=== PATIENT | female | born 1935 | race Two or more races ===

== ENCOUNTER 2021-10-28 18:55 | Emergency (ER) | payer MEDICARE, OTHER ==
[~2021-10-28] VITALS: Ht 152.4 cm; Wt 60.8 kg
[2021-10-28] MEDS ORDERED: KETOROLAC TROMETH 30 MG/ML 1ML VIAL IV ONE (19:30)
[2021-10-29] MEDS ORDERED: IBU600T PO ×2 (02:50→12:15)
[2021-10-29] MEDS ORDERED: KETOROLAC TROMETH 60MG/2ML VIAL IM ONE (03:45)
[2021-10-29 03:52] VITALS: BP 144/64
== END 2021-10-29 03:54 | disposition home or self-care (01) ==
LOC: EDBD 18:55 → ER 19:03
DX: S73.101A Unspecified sprain of right hip, initial encounter (principal); I10 Essential (primary) hypertension; W01.0XXA Fall on same level from slipping, tripping and stumbling without subsequent striking against object, initial encounter; Y93.89 Activity, other specified; Y92.89 Other specified places as the place of occurrence of the external cause; Y99.8 Other external cause status
CPT/HCPCS: 72170; 73552; 96372; 99284; J1885

== ENCOUNTER 2022-09-20 11:40 | Inpatient (IN) | payer MEDICARE, OTHER ==
[~2022-09-20] VITALS: Ht 157.5 cm; Wt 60.9 kg
[~2022-09-20 11:40] MED LIST: IBU600T PO
[2022-09-20] MEDS ORDERED: SODIUM CHLORIDE 0.9% 500 ML IVB ONE (12:00)
[2022-09-20 12:51] LABS: Basophils # (auto) 0 10 ^3/uL (0-0.2); Basophils % (auto) 0.4 % (0.0-2.0); Eosinophils # (auto) 0 10 ^3/uL (0-0.8); Eosinophils % (auto) 0.2 % (0.0-7.0); Hematocrit 34.9 % (36.0-46.0); Hemoglobin 11.8 g/dL (12.2-16.2); Lymphocytes # (auto) 1.3 10 ^3/uL (0.4-5.4); Mean Corpuscular Hemoglobin 32.9 pg (28.0-32.0); Mean Corpuscular Hgb Conc. 33.9 g/dL (32.0-36.0); Monocytes # (auto) 0.7 10 ^3/uL (0-1.3); Monocytes % (auto) 7.9 % (0.0-12.0); Neutrophils # (auto) 6.6 10 ^3/uL (1.6-8.6); Neutrophils % (auto) 76.5 % (37.0-80.0); Red Cell Distribution Width 19.4 % (11.8-14.3); White Blood Cell 8.6 10^3/uL (4.4-10.8)
[2022-09-20 13:05] LABS: Albumin 3.5 g/dL (3.4-5.0); Anion Gap 8 (5-15); Blood Urea Nitrogen 28 mg/dL (7-18); Carbon Dioxide 26 mmol/L (21-32); Chloride 100 mmol/L (98-107); Glucose 97 mg/dL (74-106); INR 1.13 (0.9-1.15); Magnesium 1.8 mg/dL (1.6-2.6); Partial Thromboplastin Time 28.8 sec (24.6-33.4); Potassium 3.2 mmol/L (3.5-5.1); Sodium 134 mmol/L (136-145)
[2022-09-20 13:10] LABS: Alanine Aminotransferase 16 U/L (13-56); Alkaline Phosphatase 101 U/L (45-117); Aspartate Aminotransferase 23 U/L (15-37); BUN/Creatinine Ratio 20.1; Bilirubin, Total 1.5 mg/dL (0.2-1.0); Blood Alcohol < 3.0 mg/dL (0-5); Calcium 8.7 mg/dL (8.5-10.1); GFR African American 46 mL/min; GFR Non-African American 38 mL/min; Total Protein 7.1 g/dL (6.4-8.2)
[2022-09-20] MEDS ORDERED: ONDANSETRON HCL 4 MG/2 ML VIAL IV PRN (18:30)
[2022-09-20] MEDS ORDERED: HYDROcodone-ACET 5/325MG TAB PO PRN (18:30)
[2022-09-20] MEDS ORDERED: ACETAMINOPHEN 325 MG TAB PO PRN (18:30)
[2022-09-20] MEDS ORDERED: DOCUSATE SOD 100 MG CAP PO PRN (18:30)
[2022-09-20] MEDS ORDERED: IOHEXOL 350 MG/ML 100ML IJ ONE (18:39)
[2022-09-20] MEDS ORDERED: POTASSIUM EFFERVESENT TAB 25 MEQ PO ONE (18:45)
[2022-09-20 20:28] LABS: Bilirubin, Direct 0.5 mg/dL (0-0.2)
[2022-09-20 20:32] LABS: Bilirubin, Total 1.5 mg/dL (0.2-1.0)
[2022-09-20] MEDS: AMIODARONE HCL 200 MG TAB PO SCH (22:00)
[2022-09-20] MEDS: SODIUM CHLOR 0.9% PF (SALINE LOCK) 10ML VIAL/SYR IV SCH (22:09)
[2022-09-21 00:01] VITALS: BP 108/43
[2022-09-21] MEDS ORDERED: AMLO-489 PO (00:32)
[2022-09-21] MEDS ORDERED: AMIO200T33 PO (00:32)
[2022-09-21 05:00] VITALS: BP 110/57
[2022-09-21] MEDS: SODIUM CHLOR 0.9% PF (SALINE LOCK) 10ML VIAL/SYR IV SCH ×3 (05:25→20:35)
[2022-09-21 09:18] VITALS: BP 107/47
[2022-09-21] MEDS: AMIODARONE HCL 200 MG TAB PO SCH ×2 (10:25→20:30)
[2022-09-21 13:08] VITALS: BP 104/50
[2022-09-21] MEDS ORDERED: cefTRIAXone 1GM/50ML D5W 50 ML IV ONE (15:00)
[2022-09-21 16:36] VITALS: BP 114/45
[2022-09-21 17:31] LABS: Urine Bacteria NONE SEEN /hpf (None Seen); Urine Blood 1+ /uL (Negative); Urine Specific Gravity 1.035 (1.001-1.035); Urine WBC 1 /hpf (0 - 5)
[2022-09-21 22:00] VITALS: BP 103/41
[2022-09-22] MEDS: SODIUM CHLOR 0.9% PF (SALINE LOCK) 10ML VIAL/SYR IV SCH ×3 (06:00→22:23)
[2022-09-22 06:07] VITALS: BP 109/43
[2022-09-22 07:06] LABS: RPR Non Reactive (Non Reactive)
[2022-09-22 08:53] VITALS: BP 106/50
[2022-09-22] MEDS: cefTRIAXone 1GM/50ML D5W 50 ML IV SCH (09:50)
[2022-09-22] MEDS: AMIODARONE HCL 200 MG TAB PO SCH ×2 (09:50→22:20)
[2022-09-22 10:48] LABS: Basophils # (auto) 0 10 ^3/uL (0-0.2); Eosinophils # (auto) 0 10 ^3/uL (0-0.8); Monocytes # (auto) 0.8 10 ^3/uL (0-1.3); Neutrophils # (auto) 6.2 10 ^3/uL (1.6-8.6)
[2022-09-22 10:50] LABS: Basophils % (auto) 0.2 % (0.0-2.0); Eosinophils % (auto) 0.2 % (0.0-7.0); Hematocrit 25.9 % (36.0-46.0); Hemoglobin 9.4 g/dL (12.2-16.2); Lymphocytes % (auto) 12.2 % (10.0-50.0); Mean Corpuscular Hemoglobin 34.1 pg (28.0-32.0); Mean Corpuscular Hgb Conc. 36.1 g/dL (32.0-36.0); Mean Corpuscular Volume 94.6 fL (80.0-100.0); Monocytes % (auto) 9.9 % (0.0-12.0); Neutrophils % (auto) 77.5 % (37.0-80.0); Red Blood Cells 2.74 10^6/uL (4.0-5.20); Red Cell Distribution Width 19.6 % (11.8-14.3)
[2022-09-22 10:58] LABS: BUN/Creatinine Ratio 20.6; Calcium 8.4 mg/dL (8.5-10.1); Potassium 3.9 mmol/L (3.5-5.1)
[2022-09-22 13:00] VITALS: BP 102/42
[2022-09-22 15:22] LABS: Hemoglobin 9.3 g/dL (12.2-16.2)
[2022-09-22 17:00] VITALS: BP 102/46
[2022-09-22 21:36] LABS: Hemoglobin 9.7 g/dL (12.2-16.2)
[2022-09-22 21:38] LABS: Hematocrit 27.4 % (36.0-46.0)
[2022-09-22 22:00] VITALS: BP 114/49
[2022-09-22] MEDS: DOXYCYCLINE 100 MG TAB/CAP PO SCH (22:20)
[2022-09-22] MEDS: PANTOPRAZOLE 40 MG TAB PO SCH (22:20)
[2022-09-22] MEDS: CLINDAMYCIN 600MG IV 50 ML IV SCH (22:21)
[2022-09-23 01:32] LABS: INR 1.18 (0.9-1.15); Partial Thromboplastin Time 29.8 sec (24.6-33.4)
[2022-09-23 05:00] VITALS: BP 107/42
[2022-09-23] MEDS: CLINDAMYCIN 600MG IV 50 ML IV SCH (05:24)
[2022-09-23] MEDS: SODIUM CHLOR 0.9% PF (SALINE LOCK) 10ML VIAL/SYR IV SCH ×3 (05:25→21:49)
[2022-09-23 07:32] LABS: Basophils # (auto) 0 10 ^3/uL (0-0.2); Basophils % (auto) 0.2 % (0.0-2.0); Eosinophils # (auto) 0 10 ^3/uL (0-0.8); Eosinophils % (auto) 0.4 % (0.0-7.0); Hematocrit 26.2 % (36.0-46.0); Hemoglobin 9.1 g/dL (12.2-16.2); Lymphocytes # (auto) 0.8 10 ^3/uL (0.4-5.4); Lymphocytes % (auto) 10.9 % (10.0-50.0); Mean Corpuscular Hemoglobin 33.3 pg (28.0-32.0); Mean Corpuscular Hgb Conc. 34.9 g/dL (32.0-36.0); Mean Corpuscular Volume 95.6 fL (80.0-100.0); Monocytes # (auto) 0.8 10 ^3/uL (0-1.3); Monocytes % (auto) 11.1 % (0.0-12.0); Neutrophils # (auto) 5.7 10 ^3/uL (1.6-8.6); Neutrophils % (auto) 77.4 % (37.0-80.0); Red Blood Cells 2.74 10^6/uL (4.0-5.20); Red Cell Distribution Width 19.1 % (11.8-14.3); White Blood Cell 7.4 10^3/uL (4.4-10.8)
[2022-09-23 07:37] LABS: Albumin 2.5 g/dL (3.4-5.0); BUN/Creatinine Ratio 17.9; Calcium 8.2 mg/dL (8.5-10.1); Total Protein 5.7 g/dL (6.4-8.2)
[2022-09-23 08:30] VITALS: BP 108/44
[2022-09-23] MEDS: cefTRIAXone 1GM/50ML D5W 50 ML IV SCH (08:58)
[2022-09-23] MEDS: ZINC SULFATE 220mg CAP or TAB PO SCH (09:03)
[2022-09-23] MEDS: AMIODARONE HCL 200 MG TAB PO SCH ×2 (09:04→22:00)
[2022-09-23] MEDS: DOXYCYCLINE 100 MG TAB/CAP PO SCH ×2 (09:04→21:48)
[2022-09-23] MEDS: PANTOPRAZOLE 40 MG TAB PO SCH ×2 (09:04→21:48)
[2022-09-23] MEDS: CHOLECALCIFEROL (VITD3) 2,000 UNIT CAP/TAB PO SCH (09:04)
[2022-09-23] MEDS ORDERED: ASCORBIC ACID 1,000 MG TAB PO SCH (10:00)
[2022-09-23 13:00] VITALS: BP 124/45
[2022-09-23 16:38] VITALS: BP 104/54
[2022-09-23] MEDS: Ensure HIGH Protein Chocolate 8oz Bottle PO SCH (17:58)
[2022-09-23 20:00] VITALS: BP 113/49
[2022-09-23 22:00] VITALS: BP 113/47
[2022-09-24 05:00] VITALS: BP 113/54
[2022-09-24] MEDS: SODIUM CHLOR 0.9% PF (SALINE LOCK) 10ML VIAL/SYR IV SCH ×3 (05:24→22:06)
[2022-09-24] MEDS: Ensure HIGH Protein Chocolate 8oz Bottle PO SCH ×3 (08:00→18:00)
[2022-09-24 09:00] VITALS: BP 111/43
[2022-09-24] MEDS: DOXYCYCLINE 100 MG TAB/CAP PO SCH ×2 (10:31→22:04)
[2022-09-24] MEDS: ZINC SULFATE 220mg CAP or TAB PO SCH (10:31)
[2022-09-24] MEDS: CHOLECALCIFEROL (VITD3) 2,000 UNIT CAP/TAB PO SCH (10:32)
[2022-09-24] MEDS: PANTOPRAZOLE 40 MG TAB PO SCH ×2 (10:32→22:04)
[2022-09-24] MEDS: AMIODARONE HCL 200 MG TAB PO SCH ×2 (10:32→22:04)
[2022-09-24 12:30] VITALS: BP 123/49
[2022-09-24] MEDS ORDERED: IOHEXOL 350 MG/ML 100ML IJ ONE (16:36)
[2022-09-24] MEDS ORDERED: LIDOCAINE 2%HCL (LOCAL ANESTH.) INJ 20ML MDV ONE (16:36)
[2022-09-24] MEDS ORDERED: MIDAZOLAM HCL 2MG/2ML 2ml VIAL (1mg/ml) ONE (16:38)
[2022-09-24] MEDS ORDERED: fentaNYL CITRATE 100 MCG/2 ML VL ONE (16:38)
[2022-09-24 17:00] VITALS: BP 108/46
[2022-09-24 20:00] VITALS: BP 124/54
[2022-09-24 22:00] VITALS: BP 124/54
[2022-09-24 22:31] LABS: Folate (Folic Acid) 14.48 ng/mL (5.38-24); Free T4 (Free Thyroxine) 1.04 ng/dL (0.89-1.76)
[2022-09-25 05:00] VITALS: BP 113/48
[2022-09-25] MEDS: SODIUM CHLOR 0.9% PF (SALINE LOCK) 10ML VIAL/SYR IV SCH ×2 (06:33→21:34)
[2022-09-25] MEDS: Ensure HIGH Protein Chocolate 8oz Bottle PO SCH ×2 (08:00→12:05)
[2022-09-25 08:01] LABS: Basophils # (auto) 0 10 ^3/uL (0-0.2); Basophils % (auto) 0.3 % (0.0-2.0); Eosinophils # (auto) 0 10 ^3/uL (0-0.8); Eosinophils % (auto) 0.3 % (0.0-7.0); Hematocrit 26.8 % (36.0-46.0); Hemoglobin 9.4 g/dL (12.2-16.2); Lymphocytes # (auto) 0.6 10 ^3/uL (0.4-5.4); Lymphocytes % (auto) 7.4 % (10.0-50.0); Mean Corpuscular Hemoglobin 33.8 pg (28.0-32.0); Mean Corpuscular Hgb Conc. 35.1 g/dL (32.0-36.0); Mean Corpuscular Volume 96.4 fL (80.0-100.0); Monocytes # (auto) 0.8 10 ^3/uL (0-1.3); Monocytes % (auto) 9.6 % (0.0-12.0); Neutrophils # (auto) 6.8 10 ^3/uL (1.6-8.6); Neutrophils % (auto) 82.4 % (37.0-80.0); Nucleated Red Blood Cells % 0.1 %; Red Blood Cells 2.78 10^6/uL (4.0-5.20); Red Cell Distribution Width 18.9 % (11.8-14.3); White Blood Cell 8.3 10^3/uL (4.4-10.8)
[2022-09-25 08:11] LABS: Potassium 4.2 mmol/L (3.5-5.1)
[2022-09-25 08:12] LABS: % Iron Saturation 16.9 % (15-50)
[2022-09-25 08:17] LABS: BUN/Creatinine Ratio 21.6; Calcium 8.3 mg/dL (8.5-10.1)
[2022-09-25] MEDS: AMIODARONE HCL 200 MG TAB PO SCH ×2 (08:59→21:32)
[2022-09-25] MEDS: PANTOPRAZOLE 40 MG TAB PO SCH ×2 (08:59→21:31)
[2022-09-25] MEDS: ZINC SULFATE 220mg CAP or TAB PO SCH (08:59)
[2022-09-25 09:00] VITALS: BP 116/51
[2022-09-25] MEDS: CHOLECALCIFEROL (VITD3) 2,000 UNIT CAP/TAB PO SCH (09:00)
[2022-09-25] MEDS: DOXYCYCLINE 100 MG TAB/CAP PO SCH ×2 (09:00→21:31)
[2022-09-25] MEDS ORDERED: FUROSEMIDE 20 MG/2 ML VIAL IV ONE (11:30)
[2022-09-25 12:44] VITALS: BP 119/52
[2022-09-25 17:00] VITALS: BP 120/45
[2022-09-25] MEDS ORDERED: FERROUS SULFATE 325mg EC TAB PO ONE (18:15)
[2022-09-26 05:00] VITALS: BP 102/50
[2022-09-26] MEDS: SODIUM CHLOR 0.9% PF (SALINE LOCK) 10ML VIAL/SYR IV SCH ×2 (06:23→15:29)
[2022-09-26 07:38] LABS: Basophils # (auto) 0 10 ^3/uL (0-0.2); Basophils % (auto) 0.2 % (0.0-2.0); Eosinophils # (auto) 0 10 ^3/uL (0-0.8); Nucleated Red Blood Cells % 0.1 %
[2022-09-26 07:40] LABS: Eosinophils % (auto) 0.5 % (0.0-7.0); Lymphocytes % (auto) 11.8 % (10.0-50.0); Mean Corpuscular Hemoglobin 34.6 pg (28.0-32.0); Mean Corpuscular Volume 96.1 fL (80.0-100.0); Monocytes % (auto) 11.6 % (0.0-12.0); Neutrophils # (auto) 6.5 10 ^3/uL (1.6-8.6); Neutrophils % (auto) 75.9 % (37.0-80.0); Red Cell Distribution Width 18.5 % (11.8-14.3); White Blood Cell 8.6 10^3/uL (4.4-10.8)
[2022-09-26 07:41] LABS: Calcium 8.3 mg/dL (8.5-10.1); Potassium 4.1 mmol/L (3.5-5.1)
[2022-09-26 07:44] LABS: BUN/Creatinine Ratio 18.5
[2022-09-26 08:30] VITALS: BP 116/50
[2022-09-26] MEDS: ZINC SULFATE 220mg CAP or TAB PO SCH (09:34)
[2022-09-26] MEDS: DOXYCYCLINE 100 MG TAB/CAP PO SCH (09:34)
[2022-09-26] MEDS: PANTOPRAZOLE 40 MG TAB PO SCH (09:34)
[2022-09-26] MEDS: CHOLECALCIFEROL (VITD3) 2,000 UNIT CAP/TAB PO SCH (09:34)
[2022-09-26] MEDS: AMIODARONE HCL 200 MG TAB PO SCH (09:34)
[2022-09-26] MEDS: FERROUS SULFATE 325mg EC TAB PO SCH ×2 (09:44→18:00)
[2022-09-26] MEDS: Ensure HIGH Protein Chocolate 8oz Bottle PO SCH ×4 (09:44→18:00)
[2022-09-26] MEDS ORDERED: FUROSEMIDE 20 MG/2 ML VIAL IV SCH (10:00)
[2022-09-26] MEDS ORDERED: PANT40TA2 PO (12:34)
[2022-09-26] MEDS ORDERED: DOX100T PO (12:34)
[2022-09-26] MEDS ORDERED: FER325T PO (12:34)
[2022-09-26 15:07] VITALS: BP 120/57
[2022-09-26 16:30] VITALS: BP 119/55
== END 2022-09-26 19:38 | disposition home health service (06) | DRG 299 ==
LOC: ER 11:40 → TELE 18:24 → TELE-WESTW 23:26
PROVIDERS: ADMIT Internal Medicine; ATTEND Internal Medicine
PROC: 06H03DZ Insertion of Intraluminal Device into Inferior Vena Cava, Percutaneous Approach (ICD-10-PCS; principal; 2022-09-24)
DX: I82.4Z2 Acute embolism and thrombosis of unspecified deep veins of left distal lower extremity (principal); G92.8 Other toxic encephalopathy; I50.41 Acute combined systolic (congestive) and diastolic (congestive) heart failure; U07.1 COVID-19; N39.0 Urinary tract infection, site not specified; N28.0 Ischemia and infarction of kidney; I13.0 Hypertensive heart and chronic kidney disease with heart failure and stage 1 through stage 4 chronic kidney disease, or unspecified chronic kidney disease; Z20.822 Contact with and (suspected) exposure to COVID-19; D64.9 Anemia, unspecified; D69.6 Thrombocytopenia, unspecified; E78.5 Hyperlipidemia, unspecified; E87.6 Hypokalemia; I48.0 Paroxysmal atrial fibrillation; N18.32 Chronic kidney disease, stage 3b; F17.210 Nicotine dependence, cigarettes, uncomplicated; S70.11XA Contusion of right thigh, initial encounter; W18.39XA Other fall on same level, initial encounter; Y93.89 Activity, other specified; Y92.89 Other specified places as the place of occurrence of the external cause; Z78.9 Other specified health status; Z83.3 Family history of diabetes mellitus; Z86.73 Personal history of transient ischemic attack (TIA), and cerebral infarction without residual deficits; Z95.828 Presence of other vascular implants and grafts; Y99.8 Other external cause status
CPT/HCPCS: 36415; 37191; 70450; 71045; 71046; 73706; 76775; 76856; 80048; 80053; 80320; 81001; 82247; 82248; 82306; 82542; 82607; 82746; 82977; 83540; 83550; 83735; 83880; 84439; 84443; 85014; 85018; 85025; 85045; 85610; 85730; 86592; 86850; 86900; 86901; 87086; 87426; 93005; 93306; 93971; 95819; 96360; 97110; 97116; 97163; 97530; 99152; G0378; J0696; J2250; J2405; J3490

== ENCOUNTER 2023-02-04 06:45 | Inpatient (IN) | payer MEDICARE, OTHER ==
[~2023-02-04] VITALS: Ht 160 cm; Wt 53.7 kg
[~2023-02-04 06:45] MED LIST changes: +AMIO200T33 PO; +AMLO1TAB22 PO; +DOX100T PO; +FER325T PO; +PANT40TA2 PO
[2023-02-04] MEDS ORDERED: ACETAMINOPHEN 500 MG TAB PO ONE (09:15)
[2023-02-04 09:51] LABS: Basophils # (auto) 0 10 ^3/uL (0-0.2); Basophils % (auto) 0.3 % (0.0-2.0); Eosinophils # (auto) 0.1 10 ^3/uL (0-0.8); Eosinophils % (auto) 1.3 % (0.0-7.0); Hematocrit 29.2 % (36.0-46.0); Hemoglobin 9.9 g/dL (12.2-16.2); Monocytes # (auto) 0.5 10 ^3/uL (0-1.3); Nucleated Red Blood Cells % 0.1 %; White Blood Cell 6.4 10^3/uL (4.4-10.8)
[2023-02-04 09:55] LABS: Lymphocytes # (auto) 1.2 10 ^3/uL (0.4-5.4); Mean Corpuscular Hemoglobin 34.4 pg (28.0-32.0); Mean Corpuscular Volume 101.1 fL (80.0-100.0); Monocytes % (auto) 8.6 % (0.0-12.0); Neutrophils # (auto) 4.6 10 ^3/uL (1.6-8.6); Neutrophils % (auto) 71.8 % (37.0-80.0); Red Blood Cells 2.89 10^6/uL (4.0-5.20); Red Cell Distribution Width 12.3 % (11.8-14.3)
[2023-02-04 10:09] LABS: Albumin 3.6 g/dL (3.4-5.0); Calcium 8.8 mg/dL (8.5-10.1)
[2023-02-04 10:13] LABS: BUN/Creatinine Ratio 22.5 (10.0-20.0); Bilirubin, Total 1.2 mg/dL (0.2-1.0); Total Protein 6.9 g/dL (6.4-8.2)
[2023-02-04] MEDS ORDERED: NITROGLYCERIN 0.4 MG SL TAB SL PRN (13:00)
[2023-02-04] MEDS ORDERED: MORPHINE SULFATE INJ 2 MG/ml SYRG IV PRN (13:00)
[2023-02-04] MEDS ORDERED: ACETAMINOPHEN 325 MG TAB PO PRN (13:00)
[2023-02-04] MEDS: SODIUM CHLORIDE 0.9% 1,000 ML IV SCH (13:00)
[2023-02-04] MEDS ORDERED: LISI10TA34 PO (13:14)
[2023-02-04] MEDS ORDERED: FURO40TA4 PO (13:14)
[2023-02-04 13:45] LABS: INR 1.02 (0.9-1.15); Partial Thromboplastin Time 25.4 sec (24.6-33.4)
[2023-02-05] MEDS: FERROUS SULFATE 325mg EC TAB PO SCH ×2 (00:56→08:20)
[2023-02-05] MEDS: SODIUM CHLORIDE 0.9% 1,000 ML IV SCH ×3 (00:57→09:01)
[2023-02-05 06:31] LABS: Basophils # (auto) 0 10 ^3/uL (0-0.2); Basophils % (auto) 0.3 % (0.0-2.0); Eosinophils # (auto) 0.2 10 ^3/uL (0-0.8); Eosinophils % (auto) 2.7 % (0.0-7.0); Hemoglobin 9.3 g/dL (12.2-16.2); Lymphocytes # (auto) 1.9 10 ^3/uL (0.4-5.4); Lymphocytes % (auto) 30.7 % (10.0-50.0); Mean Corpuscular Hemoglobin 34.9 pg (28.0-32.0); Mean Corpuscular Hgb Conc. 34.3 g/dL (32.0-36.0); Mean Corpuscular Volume 101.8 fL (80.0-100.0); Monocytes # (auto) 0.6 10 ^3/uL (0-1.3); Neutrophils # (auto) 3.5 10 ^3/uL (1.6-8.6); Neutrophils % (auto) 56.3 % (37.0-80.0); Red Blood Cells 2.65 10^6/uL (4.0-5.20); Red Cell Distribution Width 12.4 % (11.8-14.3); White Blood Cell 6.3 10^3/uL (4.4-10.8)
[2023-02-05 06:37] LABS: Albumin 3.1 g/dL (3.4-5.0); Calcium 8.4 mg/dL (8.5-10.1); Potassium 4.1 mmol/L (3.5-5.1)
[2023-02-05 06:42] LABS: Bilirubin, Total 0.8 mg/dL (0.2-1.0); Total Protein 6.5 g/dL (6.4-8.2)
[2023-02-05] MEDS ORDERED: FUROSEMIDE 40 MG TAB PO SCH (10:00)
[2023-02-05] MEDS ORDERED: LISINOPRIL 10 MG TAB PO SCH (10:00)
[2023-02-05] MEDS ORDERED: PANTOPRAZOLE 40 MG TAB PO SCH (10:00)
[2023-02-05 13:00] VITALS: BP 143/53
== END 2023-02-05 13:53 | disposition home or self-care (01) | DRG 563 ==
LOC: ER 06:45 → OVERFLOW 13:04
PROVIDERS: ADMIT Nurse Practitioner Family; ATTEND Internal Medicine
PROC: 2W38X1Z Immobilization of Right Upper Extremity using Splint (ICD-10-PCS; principal; 2023-02-04)
DX: S42.201A Unspecified fracture of upper end of right humerus, initial encounter for closed fracture (principal); N17.9 Acute kidney failure, unspecified; I12.9 Hypertensive chronic kidney disease with stage 1 through stage 4 chronic kidney disease, or unspecified chronic kidney disease; I48.91 Unspecified atrial fibrillation; D69.6 Thrombocytopenia, unspecified; D64.9 Anemia, unspecified; F17.210 Nicotine dependence, cigarettes, uncomplicated; N18.32 Chronic kidney disease, stage 3b; W18.39XA Other fall on same level, initial encounter; Z86.718 Personal history of other venous thrombosis and embolism; Z86.73 Personal history of transient ischemic attack (TIA), and cerebral infarction without residual deficits; Z95.828 Presence of other vascular implants and grafts; Y93.89 Activity, other specified; Y92.89 Other specified places as the place of occurrence of the external cause; Y99.8 Other external cause status
CPT/HCPCS: 29105; 36415; 73030; 73070; 73200; 80053; 84484; 85025; 85610; 85730; G0378

== ENCOUNTER 2023-09-04 12:19 | Emergency (ER) | payer MEDICARE, OTHER ==
[~2023-09-04] VITALS: Ht 160 cm; Wt 52.9 kg
[~2023-09-04 12:19] MED LIST changes: +FURO40TA4 PO; +LISI10TA34 PO
[2023-09-04 12:32] VITALS: BP 159/68; PULSE 60; RESP 18; O2SAT 97
[2023-09-04 13:47] LABS: Basophils # (auto) 0 10 ^3/uL (0-0.2); Basophils % (auto) 0.2 % (0.0-2.0); Eosinophils # (auto) 0.1 10 ^3/uL (0-0.8); Eosinophils % (auto) 1.6 % (0.0-7.0); Hematocrit 35.7 % (36.0-46.0); Hemoglobin 11.9 g/dL (12.2-16.2); Lymphocytes # (auto) 1.7 10 ^3/uL (0.4-5.4); Mean Corpuscular Hemoglobin 33.4 pg (28.0-32.0); Mean Corpuscular Hgb Conc. 33.3 g/dL (32.0-36.0); Mean Corpuscular Volume 100.1 fL (80.0-100.0); Monocytes # (auto) 0.5 10 ^3/uL (0-1.3); Monocytes % (auto) 7.6 % (0.0-12.0); Neutrophils # (auto) 3.8 10 ^3/uL (1.6-8.6); Neutrophils % (auto) 62.6 % (37.0-80.0); Red Blood Cells 3.56 10^6/uL (4.0-5.20); Red Cell Distribution Width 12.7 % (11.8-14.3)
[2023-09-04 14:04] LABS: Alanine Aminotransferase 18 U/L (7-40); Alkaline Phosphatase 85 U/L (46-116); Anion Gap 9 (5-15); Aspartate Aminotransferase 28 U/L (13-40); BUN/Creatinine Ratio 9.9 (10.0-20.0); Blood Urea Nitrogen 13 mg/dL (9-23); Calcium 9.9 mg/dL (8.5-10.1); Carbon Dioxide 26 mmol/L (20-30); Chloride 103 mmol/L (98-107); Glucose 105 mg/dL (74-106); Sodium 138 mmol/L (136-145)
[2023-09-04 14:05] LABS: Bilirubin, Total 1.1 mg/dL (0.2-1.0); Total Protein 7.2 g/dL (5.7-8.2)
[2023-09-04 15:58] LABS: Urine Bacteria MANY /hpf (None Seen); Urine Blood 1+ /uL (Negative); Urine Clarity HAZY (Clear); Urine Color Yellow (Yellow); Urine Mucus FEW (None Seen); Urine Protein, UAD TRACE (Negative); Urine Specific Gravity 1.017 (1.001-1.035); Urine WBC 99 /hpf (0 - 5)
[2023-09-04] MEDS ORDERED: CIPR-173 PO (16:08)
== END 2023-09-04 19:09 | disposition home or self-care (01) ==
LOC: ER 12:19
DX: N39.0 Urinary tract infection, site not specified (principal); R53.1 Weakness; F17.210 Nicotine dependence, cigarettes, uncomplicated; Z86.73 Personal history of transient ischemic attack (TIA), and cerebral infarction without residual deficits
CPT/HCPCS: 36415; 80053; 81001; 85025

== ENCOUNTER 2024-05-11 06:20 | Emergency (ER) | payer MEDICARE, OTHER ==
[~2024-05-11] VITALS: Ht 160 cm; Wt 116.0 kg
[~2024-05-11 06:20] MED LIST changes: -AMIO200T33 PO; -AMLO1TAB22 PO; +ASPI-543 PO; +CALC667C PO; +CHOL500021 PO; -DOX100T PO; -FER325T PO; -FURO40TA4 PO; -IBU600T PO; -LISI10TA34 PO; +LISI20TA56 PO
[2024-05-11 08:44] LABS: Basophils # (auto) 0 10 ^3/uL (0-0.2); Basophils % (auto) 0.3 % (0.0-2.0); Eosinophils # (auto) 0.1 10 ^3/uL (0-0.8); Eosinophils % (auto) 2.1 % (0.0-7.0); Hematocrit 31.1 % (36.0-46.0); Hemoglobin 10.6 g/dL (12.2-16.2); Lymphocytes # (auto) 2.1 10 ^3/uL (0.4-5.4); Lymphocytes % (auto) 37.1 % (10.0-50.0); Mean Corpuscular Hemoglobin 33.4 pg (28.0-32.0); Mean Corpuscular Hgb Conc. 34.2 g/dL (32.0-36.0); Mean Corpuscular Volume 97.5 fL (80.0-100.0); Monocytes # (auto) 0.5 10 ^3/uL (0-1.3); Monocytes % (auto) 8.5 % (0.0-12.0); Nucleated Red Blood Cells % 0.1 %; Platelet Count (auto) 139 10^3/uL (140-450); Red Blood Cells 3.19 10^6/uL (4.0-5.20); Red Cell Distribution Width 13.1 % (11.8-14.3); White Blood Cell 5.7 10^3/uL (4.4-10.8)
[2024-05-11 08:50] LABS: Urine Bacteria None Seen /hpf (None Seen)
[2024-05-11] MEDS: SODIUM CHLORIDE 0.9% 500 ML IV ONE (08:51)
[2024-05-11 08:59] LABS: Urine Blood Negative /uL (Negative); Urine Clarity Clear (Clear); Urine Color Light-Yellow (Yellow); Urine Protein, UAD Negative (Negative); Urine Specific Gravity 1.009 (1.001-1.035); Urine Urobilinogen Normal (Negative); Urine WBC 1 /hpf (0 - 5)
[2024-05-11 09:00] LABS: Chloride 108 mmol/L (98-107); Potassium 3.9 mmol/L (3.5-5.1); Sodium 140 mmol/L (136-145)
[2024-05-11 09:01] LABS: Anion Gap 4 (5-15); Calcium 9.8 mg/dL (8.7-10.4); Carbon Dioxide 28 mmol/L (20-30)
[2024-05-11 09:06] LABS: BUN/Creatinine Ratio 18.4 (10.0-20.0); Blood Urea Nitrogen 23 mg/dL (9-23); Glucose 95 mg/dL (74-106); Magnesium 1.9 mg/dL (1.6-2.6)
[2024-05-11 09:25] LABS: INR 1.06 (0.9-1.15); Partial Thromboplastin Time 26.5 SEC (24.5-34.5); Prothrombin Time 11.2 sec (9.3-11.8)
[2024-05-11 10:15] VITALS: BP 120/81; PULSE 64; RESP 16; TEMP 97.5; O2SAT 100
[2024-05-11] MEDS ORDERED: LIDO5DIS21 TOP (10:20)
== END 2024-05-11 10:38 | disposition home or self-care (01) ==
LOC: ER 06:20
DX: M47.816 Spondylosis without myelopathy or radiculopathy, lumbar region (principal); F17.210 Nicotine dependence, cigarettes, uncomplicated; I48.91 Unspecified atrial fibrillation; I12.9 Hypertensive chronic kidney disease with stage 1 through stage 4 chronic kidney disease, or unspecified chronic kidney disease; N18.9 Chronic kidney disease, unspecified; Z79.899 Other long term (current) drug therapy
CPT/HCPCS: 36415; 72131; 80048; 81001; 83735; 83880; 85025; 85379; 85610; 85730; 96360